=== PATIENT | male | born 1975 | race Caucasian/White ===

== ENCOUNTER 2024-02-09 11:09 | Outpatient (AMB) | payer OTHER, SELFPAY ==
--- NOTE | 2024-02-09 11:16 | A.OFFVIS_ITS ---
Intake Visit Reasons: erectile dysfunction Intake Note: NEW Patient presents today to established treatment for Erectile Dysfuntion: Allergies to Antibiotic- No Known Allergies Blood Thinner- None Embossing Toolsetter Required: No Accompanied by: Self / Same As Patient Allergies No Known Allergies Allergy (Verified 02/09/24 11:20) Medication List - Last Reconciled 02/09/24 by Sydni Garcias MD atorvastatin 80 mg PO DAILY citalopram 20 mg PO DAILY clonidine HCl 0.1 mg PO BID hydroxyzine pamoate 50 mg PO BID PRN lorazepam 0.5 mg PO DAILY methadone 28 mg PO DAILY propranolol 20 mg PO BID tadalafil (Cialis) 5 mg PO DAILY tamsulosin 0.4 mg PO DAILY HPI Comments Details: Yves Matos is here for evaluation for ED. CoMorbidity - On methadone, complains of slowly the urinary stream. Check testosterone levels Start Cialis 5 mg daily, tamsulosin 0.4 mg daily. [facility] Medical History (Updated 03/08/24 @ 08:30 by Sydni Garcias MD) History of positive hepatitis C History of bacteremia Embolic cerebrovascular disease History of intravenous drug abuse Kidney stones Opioid dependence Abscess of arm Patella fracture Erectile dysfunction Low libido Surgical History Hx of lithotripsy Family History Father No problems noted. Mother Lung cancer Social History Alcohol intake: current Alcohol intake frequency: holidays/special occasions only Patient Tobacco Use Status: Current everyday Tobacco user Review of Systems Const All systems reviewed & are unremarkable except as noted in HPI and below Reports no additional complaints Eyes Reports no additional complaints ENT Reports no additional complaints Card Reports no additional complaints Resp Reports no additional complaints GI Reports no additional complaints Reports as per HPI Musc Reports no additional complaints Skin/Breast Reports system reviewed and no additional complaints, except as documented Neuro Reports no additional complaints Psych Reports no additional complaints Endo Reports no additional complaints Alberto/Lymph Reports no additional complaints Aller/Immun Reports no additional complaints Physical Exam Const General: healthy appearing, no acute distress and well developed Orientation/consciousness: patient oriented x3 HEENT Head: Yes normocephalic and Yes atraumatic Eyes Conjunctivae: conjunctivae normal Neck Neck: Yes normal visual inspection Chest Chest palpation & inspection: normal inspection of the chest Resp Effort & Inspection: normal respiratory effort Cardio Rate: regular rate GI Inspection: Yes normal to inspection Palpation (GI): Soft to palpation Skin General skin exam: no rashes or lesions noted Neuro General: patient oriented x3 Extrem General: No pedal edema Psych Appearance: grossly normal Affect: normal affect Results AMB Urinalysis, Automated UA Leukoctes 0 Susan/uL Last Edit by GEORGIE Garcia on 02/09/24 11:52 UA Nitrite Negative Last Edit by GEORGIE Garcia on 02/09/24 11:52 UA Urobilinogen 0.2 mg/dL Last Edit by GEORGIE Garcia on 02/09/24 11:5 2 UA Protein 15 mg/dL Last Edit by GEORGIE Garcia on 02/09/24 11:52 UA pH 6.0 Last Edit by GEORGIE Garcia on 02/09/24 11:52 UA Blood 0 Angel/uL Last Edit by GEORGIE Garcia on 02/09/24 11:52 UA Specific [place] 1.015 Last Edit by GEORGIE Garcia on 02/09/24 11: 52 UA Ketone Negative Last Edit by GEORGIE Garcia on 02/09/24 11:52 UA Bilirubin 0 mg/dL Last Edit by GEORGIE Garcia on 02/09/24 11:52 UA Glucose 0 mg/dL Last Edit by GEORGIE Garcia on 02/09/24 11:52 Results Reviewed Results Reviewed: Laboratory Last Values Urine pH (Auto) 6.0 02/09/24 11:51 Specific [place] (Auto) 1.015 02/09/24 11:51 Urine Protein (Auto) 15 mg/dL 02/09/24 11:51 Glucose (UA)(Auto) 0 mg/dL 02/09/24 11:51 Urine Ketones (Auto) Negative 02/09/24 11:51 Urine Blood (Auto) 0 Angel/uL 02/09/24 11:51 Urine Nitrite (Auto) Negative 02/09/24 11:51 Urine Bilirubin (Auto) 0 mg/dL 02/09/24 11:51 Urine Urobilinogen (Auto) 0.2 mg/dL 02/09/24 11:51 Leukocyte Esterase (Auto) 0 Susan/uL 02/09/24 11:51 Assessment & Plan Assessment & Plan (1) Erectile dysfunction: Code(s): N52.9 - Male erectile dysfunction, unspecified Category: Medical (2) Screening PSA (prostate specific antigen): Code(s): Z12.5 - Encounter for screening for malignant neoplasm of prostate Category: Medical (3) BPH loc w urin obs/LUTS: Code(s): N40.1 - Benign prostatic hyperplasia with lower urinary tract symptoms Category: Medical Plan Erectile dysfunction. Trial of Cialis 5 mg daily. Check hormonal lab values. Obstructive urinary symptoms, BPH. Tamsulosin 0.4 mg daily, PSA screening. Orders: Orders AMB Urinalysis Automated 02/09/24 Z13.9 - Encounter for screening, unspecified Medications: New tadalafil (Cialis) [id number] [facility] [id number] Member [id number] 5 mg PO DAILY 30 tabs 4RF Patient Instructions: The patient had an opportunity to ask questions regarding treatment plan. The patient expressed understanding and agreement with the above treatment plan. The patient is aware they should contact our office by phone for worsening of their current condition or the appearance of new symptoms. Compliance is encouraged with any medications and followup testing that is ordered. It is a privilege to be allowed the opportunity to participate in the urologic care of your patient. If you have any questions or concerns regarding treatment for the above conditions please do not hesitate to contact me. The office telephone contact is [phone]. This note is constructed in part using voice recognition software. While every effort has been made to ensure accuracy light truck driver errors may have been included. Yours sincerely, Sydni Garcias MD Coding Level of Care Code New Pt Level 4 (65865) Diagnoses Erectile dysfunction N52.9 Screening PSA (prostate specific antigen) Z12.5 BPH loc w urin obs/LUTS N40.1
== END 2024-02-09 12:20 | disposition home or self-care (01) ==
PROVIDERS: PCP Physician Assistant; Visit Provider Urology
DX: N52.9 Male erectile dysfunction, unspecified (principal); Z12.5 Encounter for screening for malignant neoplasm of prostate; N40.1 Benign prostatic hyperplasia with lower urinary tract symptoms
CPT/HCPCS: 99204

== ENCOUNTER → 2024-02-09 11:09 | Outpatient (BNVA) | payer OTHER, SELFPAY | PROVIDERS: PCP Physician Assistant; Visit Provider Urology | DX: N52.9 Male erectile dysfunction, unspecified (principal); N40.1 Benign prostatic hyperplasia with lower urinary tract symptoms; Z12.5 Encounter for screening for malignant neoplasm of prostate | CPT/HCPCS: 81003; 99202 ==

== ENCOUNTER 2024-02-15 07:30 | Outpatient (REF) | payer OTHER, SELFPAY ==
[2024-02-21 15:04] LABS: Testosterone, Free 19.3 pg/mL (35.0-155.0); Testosterone, Total 233 ng/dL (250-1100)
== END 2024-02-15 07:31 | disposition home or self-care (01) ==
LOC: HO.HMGCLDS 07:30
PROVIDERS: PCP Internal Medicine; Visit Provider Urology
DX: N52.9 Male erectile dysfunction, unspecified (principal); R68.82 Decreased libido
CPT/HCPCS: 36415; 84402; 84403